=== PATIENT | male | born 1985 | race African-American/Black ===

== ENCOUNTER 2023-03-02 12:38 | Emergency (ER) | payer SELFPAY ==
[~2023-03-02] VITALS: Ht 177.8 cm; Wt 90.9 kg
[2023-03-02 12:55] VITALS: TEMP 98.6
[2023-03-02 15:30] VITALS: BP 139/81; PULSE 97
== END 2023-03-02 15:32 | disposition home or self-care (01) ==
LOC: COL.ER 12:38
DX: S09.90XA Unspecified injury of head, initial encounter (principal); S16.1XXA Strain of muscle, fascia and tendon at neck level, initial encounter; S61.211A Laceration without foreign body of left index finger without damage to nail, initial encounter; V67.5XXA Driver of heavy transport vehicle injured in collision with fixed or stationary object in traffic accident, initial encounter; Y92.410 Unspecified street and highway as the place of occurrence of the external cause